=== PATIENT | female | born 1940 | race Hispanic/Latino ===

== ENCOUNTER 2023-02-06 11:26 | Emergency (ER) | payer MEDICARE ==
[~2023-02-06 11:26] MED LIST: ACET-2743 PO; ATOR40TA71 PO; CALC-1294 PO; CYAN-52 PO; DAILY FIBER PO; DOCU100C33 PO; LISI10TA24 PO; METF-444 PO; OMEG-165 PO; SERT-439 PO; TRAZ-253 PO
[2023-02-06] MEDS ORDERED: LIDO1ADH71 TP (14:09)
[2023-02-06] MEDS ORDERED: LIDOCAINE 5% TOPICAL PATCH TP ONE ×2 (15:42→16:00)
== END 2023-02-06 16:13 | disposition home or self-care (01) ==
LOC: EDH 11:26
DX: K59.00 Constipation, unspecified (principal); F32.A Depression, unspecified; I10 Essential (primary) hypertension; E11.9 Type 2 diabetes mellitus without complications; E78.00 Pure hypercholesterolemia, unspecified; Z79.84 Long term (current) use of oral hypoglycemic drugs; Z79.899 Other long term (current) drug therapy; Z98.890 Other specified postprocedural states
CPT/HCPCS: 72220; 73521